=== PATIENT | male | born 1980 | race Caucasian/White ===

== ENCOUNTER → 2018-12-10 | Outpatient (CLI) | payer OTHER ==
--- NOTE | 2018-12-10 12:12 | KCIC ---
EXAM: Bilateral feet, 3 views. HISTORY: Pain. COMPARISON: None. FINDINGS: 3 views of both feet are obtained. There is no fracture, dislocation or subluxation. No lytic or sclerotic osseous lesion is seen. IMPRESSION: No acute osseous finding. Electronically signed by: Sheri Raphael MD (12/10/2018 12:09 PM) [id number]
== END | disposition home or self-care (01) ==
LOC: KCIC 10:13
PROVIDERS: ATTEND Family Medicine
DX: M79.671 Pain in right foot (principal); M79.672 Pain in left foot
CPT/HCPCS: 73630